=== PATIENT | female | born 1965 | race Caucasian/White ===

== ENCOUNTER 2022-07-29 01:06 | Emergency (ER) | payer SELFPAY ==
[~2022-07-29] VITALS: Ht 154.9 cm; Wt 58.0 kg
[2022-07-29 01:15] VITALS: BP 163/55
== END 2022-07-29 05:49 | disposition left against medical advice (07) ==
LOC: ER 01:06
DX: R07.89 Other chest pain (principal); Z53.21 Procedure and treatment not carried out due to patient leaving prior to being seen by health care provider
CPT/HCPCS: 99281